=== PATIENT | male | born 1985 | race Caucasian/White ===

== ENCOUNTER 2020-09-21 18:27 | Emergency (ER) | payer SELFPAY ==
[~2020-09-21] VITALS: Ht 182 cm; Wt 68.0 kg
[~2020-09-21 18:27] MED LIST: CEPH500C PO; PRD20T PO; TRM50T PO
[2020-09-21] MEDS ORDERED: LIDOCAINE 2% VISCOUS 15 ML UDC PO ONE (18:45)
[2020-09-21] MEDS ORDERED: CEPHALEXIN 250 MG (KEFLEX) CAP PO ONE (18:45)
[2020-09-21] MEDS ORDERED: LIDOCAINE 1% INJ 20 ML 20 ML VIAL INJ ONE (18:45)
[2020-09-21] MEDS ORDERED: VISCOUS LIDOCAINE MM (18:55)
[2020-09-21] MEDS ORDERED: CEPH500T PO (18:55)
--- NOTE | 2020-09-21 18:55 | ED EENT ---
History of Present Illness General Chief Complaint: Dental Problems/Pain Stated Complaint: FACIAL SWELLING Source: patient Exam Limitations: no limitations History of Present Illness Date Seen by Provider: Sep 21, 2020 Time Seen by Provider: 18:29 Initial Comments Patient presents ER by private conveyance from home with chief complaint of 4 days progressively worsening swelling and pain in his right mandible associated with a recent dental extraction a few months ago by a dentist in [place], [place]. He says they had problems with extraction and broke off the wire in one of the roots of his tooth. He was told he had to go to a dental surgeon but he has not done this because he is trying to get money together. He has been on 2 courses of antibiotics in July. None recently. He's been using ibuprofen and hydrocodone for pain unsuccessfully. No nausea fevers or difficulty swallowing. Allergies and Home Medications Allergies Coded Allergies: No Known Drug Allergies (Unverified , 08/05/12) Home Medications Cephalexin 500 Mg Tablet, 500 MG PO TID Prescribed by: ROMMEL HOOKER on 09/21/201854 Prednisone 20 Mg Tab, 20 MG PO BID Prescribed by: BOY REAGAN on 08/05/122157 [Viscous lidocaine] 2% BOTTLE, 5 ML MM Q4H PRN for PAIN-BREAKTHROUGH Prescribed by: ROMMEL HOOKER on 09/21/201854 Patient Home Medication List Home Medication List Reviewed: Yes Review of Systems Review of Systems Constitutional: No chills, No diaphoresis Eyes: Denies Blindness, Denies Blurred Vision Ears: Denies Dizziness, Denies Pain Nose: denies clots, denies pain Mouth: see HPI; denies clots; pain, swelling Throat: denies pain, denies swelling Respiratory: No cough, No short of breath All Other Systems Reviewed Negative Unless Noted: Yes Past Gasqtzt-Jjowfk-Ofjkvw Hx Patient Social History Alcohol Use: Denies Use Recreational Drug Use: No Smoking Status: Current Everyday Smoker Type Used: Cigarettes Recent Foreign Travel: No Contact w/Someone Who Travel: No Recent Hopitalizations: No Immunizations Up To Date Date of Influenza Vaccine: Jul 31, 2012 Past Medical History Surgeries: No Respiratory: No Cardiac: No Neurological: No Genitourinary: No Gastrointestinal: No Musculoskeletal: No Endocrine: No HEENT: No Cancer: No Psychosocial: No Integumentary: No Physical Exam Height, Weight, BMI Height: '" Weight: lbs. oz. kg; BMI Method:Stated General Appearance: WD/WN, mild distress Eyes: bilateral eye normal inspection, bilateral eye PERRL, bilateral eye EOMI Ears: bilateral ear auricle normal, bilateral ear canal normal, bilateral ear TM normal Nose: normal inspection; No active bleeding, No discharge Mouth/Throat: other (the right mandible soft tissue swelling without fluctuance or pointing. Dental caries and a recent extraction as well as a temporary cap On his right sided mandibular molars) Neck: non-tender, full range of motion, supple, normal inspection Cardiovascular: normal peripheral pulses, regular rate, rhythm Respiratory: no respiratory distress, no accessory muscle use Neurologic/Psychiatric: alert, oriented x 3 Procedures/Interventions Right sided infra-alveolar nerve block of the right mandible. Risks, benefits and alternatives were explained the patient and he consented. Then administer 50% of half Percent Marcaine with epinephrine and 2% lidocaine without epinephrine was mixed and using a 27-gauge 1-1/4 inch needle we applied it to the appropriate space giving him near immediate relief of his discomfort. 1 cc total was injected after aspirating no blood. Patient tolerated the procedure very well. Progress/Results/Core Measures Results/Orders My Orders Orders - ROMMEL HOOKER Cephalexin Capsule (Keflex Capsule) (09/21/20 18:45) Lidocaine 2% Viscous 15 Ml (Xylocaine Vi (09/21/20 18:45) Lidocaine 1% Inj 20 Ml (Xylocaine 1% Inj (09/21/20 18:45) Progress Progress Note : Time: 18:52 Progress Note Offered an inferior alveolar nerve block which she accepted. We'll give him some viscous lidocaine and put him on Keflex. Departure Impression Primary Impression: Dental abscess Disposition: 01 HOME, SELF-CARE Condition: Stable Departure-Patient Inst. Decision time for Depature: 18:52 Referrals: AMBER ISIDRO DO (PCP/Family) Primary Care Physician Patient Instructions: Tooth Abscess (DC), Fractured Tooth (DC) Add. Discharge Instructions: You need to follow-up with a dental surgeon for extraction. You can use the viscous lidocaine applied to some gauze directly over the socket where the pain is every 4 hours as necessary for intractable pain. You may also use Orajel or similar topical formulas. Warm moist heat applied to the jaw can be helpful. Keflex one capsule 3 times a day with food for the next 10 days. Return to the ER if you're having difficulty breathing or swallowing. Tylenol 1000 mg every 8 hours as necessary for pain. Ibuprofen 800 mg every 8 hours as necessary for pain. All discharge instructions reviewed with patient and/or family. Voiced understanding. Scripts Cephalexin (Cephalexin) 500 Mg Tablet 500 MG PO TID for 10 Days, #30 TAB 0 Refills Prov: ROMMEL HOOKER 09/21/20 [Viscous lidocaine] 2% BOTTLE No Conflict Check 5 ML MM Q4H PRN for PAIN-BREAKTHROUGH, #100 ML 0 Refills Prov: ROMMEL HOOKER 09/21/20 ROMMEL HOOKER Sep 21, 2020 18:55
[2020-09-21 19:02] VITALS: BP 137/99
== END 2020-09-21 19:08 | disposition home or self-care (01) ==
LOC: EDUNIT# 18:27 → ER 18:28
DX: K04.7 Periapical abscess without sinus (principal); F17.210 Nicotine dependence, cigarettes, uncomplicated; Z79.52 Long term (current) use of systemic steroids
CPT/HCPCS: 99283